=== PATIENT | male | born 1995 | race Caucasian/White ===

== ENCOUNTER 2016-04-14 10:36 | Emergency (ER) | payer OTHER ==
[~2016-04-14] VITALS: Ht 188 cm; Wt 68.0 kg
[2016-04-14 11:19] LABS: HEMATOCRIT 41.3 % (42.0-52.0); HEMOGLOBIN 13.9 gm/dL (14.0-18.0); MANUAL DIFF YES; MCH 29.3 pg (26.0-34.0); MCHC 33.7 % (28.0-37.0); PLATELET COUNT 255 thou/uL (150-400); RBC 4.75 mil/uL (4.50-6.00); RDW 13.6 % (10.5-14.5); WBC 14.2 thou/uL (4.0-11.0)
[2016-04-14 11:27] LABS: POTASSIUM 4.1 mmol/L (3.5-5.1)
[2016-04-14] MEDS ORDERED: HYDROCODONE-AP1 EAC6 PO (12:35)
[2016-04-14] MEDS ORDERED: CLEOCIN HCL300 MG PO (12:35)
[2016-04-14] MEDS ORDERED: IBUPROFEN 600600 M1 PO (12:35)
[2016-04-14 12:45] VITALS: BP 118/73
[2016-04-14 12:50] LABS: ABSOLUTE NEUTROPHILS 11.4 thou/uL (1.4-8.2); PLATELET ESTIMATE NORMAL; TOTAL CELL COUNT 100
== END 2016-04-14 13:13 | disposition home or self-care (01) ==
LOC: ER 10:36
PROVIDERS: Nurse Practitioner
DX: J36 Peritonsillar abscess (principal); Q53.9 Undescended testicle, unspecified